=== PATIENT | female | born 2005 | race Caucasian/White ===

== ENCOUNTER 2023-12-15 14:42 | Emergency (ER) | payer SELFPAY ==
--- NOTE | ~2023-12-15 | XR_ITS ---
EXAMINATION: XR finger 2nd LT min 2V DATE: 12/15/2023 15:20 INDICATION: Posterior neck pain at the left second distal phalanx TECHNIQUE: Dorsal palmar, lateral and 2 oblique views of the left second digit were obtained COMPARISON: None FINDINGS: 1-2 mm distraction of a likely avulsion fracture fragment comprising a significant portion of the rg christiano/ulnar side of the articular surface at the base of the left second distal phalanx. No other fract ures identified. Joint spaces are otherwise unremarkable. Soft tissue swelling about the distal left second digit. IMPRESSION: 1. 1-2 mm distraction of an intra-articular avulsion fracture at the dorsal/ulnar base of the left se cond distal fundus. Reviewed, dictated and finalized at location A. IMPRESSION: 1. 1-2 mm distraction of an intra-articular avulsion fracture at the dorsal/uln ar base of the left second distal fundus.
[2023-12-15 15:03] VITALS: BP 113/77; PULSE 85; RESP 16; TEMP 36.5; O2SAT 100
--- NOTE | 2023-12-15 15:07 | ED.UPPEXIN ---
HPI - Extremity Injury (Upper) General Chief Complaint: Extremity Injury, Upper Stated Complaint: Injured Finger Time Seen by Provider: 12/15/23 15:07 Source: patient Mode of arrival: ambulatory Limitations: no limitations History of Present Illness HPI narrative: 17 y/o female presented for c/o left index finger pain and swelling after injury 8 days ago. States while playing flag football she attempted to catch a ball when it struck her finger. Reports mild swelling and pain with movement. Has been wearing a metal splint, and taking it off at night. Says Tylenol and ibuprofen do not help. Related Data Allergies Allergy/AdvReac Type Severity Reaction Status Date / Time No Known Allergies Allergy Verified 12/15/23 15:36 Review of Systems Review of Systems: CONSTITUTIONAL: Denies body aches, fever, chills CARDIOVASCULAR: Denies chest pain, palpitations, or edema. RESPIRATORY: Denies cough or dyspnea. SKIN: Denies rash, itching, or wounds. MUSCULOSKELETAL: reports left index finger pain NEUROLOGIC: Denies numbness, tingling, or weakness. All systems reviewed & are unremarkable except as noted in HPI and below PMFSH Comments At time of signature, I have reviewed and agree with nursing past medical, surgical, social and family history unless otherwise noted. Please see nursing chart for further information. There is no relevant family history pertinent to the presenting complaint Exam Narrative: GENERAL: Well-appearing CHEST: Speaks in full sentences. No respiratory distress. HEART: Regular rate and rhythm. Normal and equal peripheral pulses. EXTREMITIES: Left hand 2nd digit with slightly decreased range of motion due to pain with movement. Mild swelling and erythema to the DIP with point tenderness. Appears the distal phalanx is not able to tolerate full extension. Hand has normal strength and sensation, No open wounds. pulse palpable and equal bilaterally, skin warm, dry, pink. Capillary refill less than 3 seconds. SKIN: Warm, dry NEURO: Alert and oriented x3. Course Course Emergency Course: Patient is aware of diagnosis, understands and agrees to treatment plan. Anticipatory guidance given. Patient agrees to follow-up as directed and is aware of reasons to seek care at the emergency department. Portions of this record may have been created with voice recognition software Level of Care: Express Care Visit Vital Signs Vital signs: Vital Signs Temperature 97.7 F 12/15/23 15:03 Pulse Rate 85 12/15/23 15:03 Respiratory Rate 16 12/15/23 15:03 Blood Pressure 113/77 12/15/23 15:03 Pulse Oximetry 100 12/15/23 15:03 Temperature 97.7 F 12/15/23 15:03 Pulse Rate 85 12/15/23 15:03 Respiratory Rate 16 12/15/23 15:03 Blood Pressure 113/77 12/15/23 15:03 Pulse Oximetry 100 12/15/23 15:03 Reviewed MDM - Extremity Injury (Upper) MDM Narrative Medical decision making narrative: Discussed physical exam findings and x-ray. She will continue with her current splint from home. Advised supportive measures and signs/symptoms to go to the ER. Pt is appropriate for outpt treatment and f/u with hand specialist. Differential Diagnosis Differential diagnosis: Likely finger sprain, dislocation of finger, fracture of hand and other Imaging Data Radiologist's impression: Patient: Prisca Rockwell : 2005 MR#: [id number] Age: 17 Acct:[id number] Loc: [facility] ADM Date: 12/15/23Attending Dr: Ordering Physician: Keena Yanes APRN Date of Service: 12/15/23 Procedure(s): XR finger 2nd LT min 2V Accession Number(s): [id number] cc: Keena Yanes APRN; [employer]~ EXAMINATION: XR finger 2nd LT min 2V DATE: 12/15/2023 15:20 INDICATION: Posterior neck pain at the left second distal phalanx TECHNIQUE: Dorsal palmar, lateral and 2 oblique views of the left second digit were obtained COMPARISON: None FINDINGS: 1-2 mm distraction of a likely av
== END 2023-12-15 15:42 | disposition home or self-care (01) ==
PROVIDERS: Emergency Provider Nurse Practitioner Family
DX: S62.631A Displaced fracture of distal phalanx of left index finger, initial encounter for closed fracture (principal); W21.01XA Struck by football, initial encounter; Y93.62 Activity, american flag or touch football
CPT/HCPCS: 73140; 99213; G0463